=== PATIENT | male | born 1975 | race African-American/Black ===

== ENCOUNTER 2023-03-31 20:32 | Emergency (ER) | payer SELFPAY | END 2023-03-31 21:25 | disposition home or self-care (01) | LOC: MW.ED 20:32 | DX: S81.012D Laceration without foreign body, left knee, subsequent encounter (principal); Z48.02 Encounter for removal of sutures; Z88.0 Allergy status to penicillin; Z91.018 Allergy to other foods; Z79.82 Long term (current) use of aspirin | CPT/HCPCS: 99281; 99283 ==